=== PATIENT | male | born 1975 | race Caucasian/White ===

== ENCOUNTER 2018-03-27 09:49 | Outpatient (REF) | payer OTHER, SELFPAY ==
[2018-03-27 21:39] LABS: Cholesterol 169 mg/dL (50-200); HDL Cholesterol 45 mg/dL (40-60); LDL CHOLESTEROL 66 mg/dL (<100); Triglyceride 177 mg/dL (30-150)
[2018-03-29 09:34] LABS: Hepatitis C Ab w Rflx HCV PCR Negative (NEGAT)
[2018-03-29 09:56] LABS: HBs Antibody, Quant <3.1 mIU/mL; Hepatitis B Surface Ab Negative
[2018-03-29 10:01] LABS: Hepatitis B Surface Ag Negative (NEGAT)
[2018-03-29 10:58] LABS: HIV-1/2 Ag & Ab Screen Negative (NEGAT)
[2018-03-29 12:51] LABS: Syphilis Serology (RPR) Negative (Negative)
[2018-03-29 15:38] LABS: Chlamydia Result Negative; GC Result Negative; Specimen Description URINE
== END 2018-03-27 10:09 ==
LOC: NCHCN 09:49
PROVIDERS: PCP Nurse Practitioner Family; Visit Provider Nurse Practitioner Family
DX: Z11.3 Encounter for screening for infections with a predominantly sexual mode of transmission (principal); Z13.220 Encounter for screening for lipoid disorders; Z11.4 Encounter for screening for human immunodeficiency virus [HIV]; Z11.59 Encounter for screening for other viral diseases
CPT/HCPCS: 80061; 83721; 86706; 86803; 87340; 87389; 87491; 87591; 86592

== ENCOUNTER 2019-09-10 11:47 | Outpatient (REF) | payer SELFPAY ==
[2019-09-10 21:05] LABS: ALT 71 U/L (16-63); AST 34 U/L (15-37); Albumin 4.4 g/dL (3.4-5.0); Alkaline Phosphatase 106 U/L (46-116); Anion Gap 10.4 mmol/L (3-11); BUN 18 mg/dL (7-18); Bilirubin, Total 0.5 mg/dL (0.2-1.0); CO2 28.6 mmol/L (21.0-32.0); CREATININE 0.79 mg/dL (0.70-1.30); Chloride 104 mmol/L (98-107); Glucose 154 mg/dL (74-106); Potassium 4.2 mmol/L (3.5-5.1); Sodium 143 mmol/L (136-145); Total Protein 7.4 g/dL (6.4-8.2)
== END 2019-09-10 12:07 ==
LOC: LBN 11:47
PROVIDERS: PCP Nurse Practitioner Family; Visit Provider Internal Medicine
DX: R74.0 Nonspecific elevation of levels of transaminase and lactic acid dehydrogenase [LDH] (principal)
CPT/HCPCS: 80053

== ENCOUNTER 2020-04-19 21:12 | Outpatient (REF) | payer SELFPAY ==
[2020-04-28 17:59] LABS: SARS-CoV-2 RNA Undetected (Undetected); SARS-CoV-2 Specimen Source Nasal/Nares
== END 2020-04-19 21:32 ==
LOC: NCHCN 21:12
PROVIDERS: PCP Nurse Practitioner Family; Visit Provider Nurse Practitioner Family
DX: Z20.828 Contact with and (suspected) exposure to other viral communicable diseases (principal)
CPT/HCPCS: U0003

== ENCOUNTER 2020-07-13 17:14 | Outpatient (REF) | payer BC, SELFPAY ==
[2020-07-13 22:38] LABS: ALT 99 U/L (16-63); AST 43 U/L (15-37); Albumin 4.4 g/dL (3.4-5.0); Alkaline Phosphatase 77 U/L (46-116); BUN 22 mg/dL (7-18); Bilirubin, Total 0.3 mg/dL (0.2-1.0); CREATININE 0.93 mg/dL (0.70-1.30); Calcium 9.1 mg/dL (8.5-10.1); Chloride 103 mmol/L (98-107); Cholesterol 219 mg/dL (<200); Glucose 132 mg/dL (74-106); HDL Cholesterol 31 mg/dL (40-60); Potassium 4.2 mmol/L (3.5-5.1); Sodium 134 mmol/L (136-145); Total Protein 7.6 g/dL (6.4-8.2); Triglyceride 429 mg/dL (<150)
[2020-07-13 22:57] LABS: LDL CHOLESTEROL 72 mg/dL (<100)
[2020-07-13 23:04] LABS: Lipase 92 U/L (73-393)
== END 2020-07-13 17:34 ==
LOC: NCHCN 17:14
PROVIDERS: PCP Nurse Practitioner Family; Visit Provider Nurse Practitioner Family
DX: R10.11 Right upper quadrant pain (principal); R73.03 Prediabetes; E66.9 Obesity, unspecified
CPT/HCPCS: 80053; 80061; 83690; 83721

== ENCOUNTER 2020-10-21 08:13 | Outpatient (REF) | payer BC, SELFPAY ==
[2020-10-21 13:22] LABS: ALT 60 U/L (16-63); AST 24 U/L (15-37); Albumin 4.2 g/dL (3.4-5.0); Alkaline Phosphatase 76 U/L (46-116); Anion Gap 11.7 mmol/L (3-11); BUN 16 mg/dL (7-18); Bilirubin, Total 0.2 mg/dL (0.2-1.0); CO2 24.3 mmol/L (21.0-32.0); CREATININE 0.9 mg/dL (0.70-1.30); Calcium 8.6 mg/dL (8.5-10.1); Calculated LDL 62 mg/dL (<100); Chloride 106 mmol/L (98-107); Cholesterol 130 mg/dL (<200); Glucose 114 mg/dL (74-106); HDL Cholesterol 38 mg/dL (40-60); Potassium 4.4 mmol/L (3.5-5.1); Sodium 142 mmol/L (136-145); Total Protein 7.4 g/dL (6.4-8.2); Triglyceride 151 mg/dL (<150)
== END 2020-10-21 08:14 | disposition home or self-care (01) ==
LOC: NCHCN 08:13
PROVIDERS: PCP Nurse Practitioner Family; Visit Provider Nurse Practitioner Family
DX: R73.03 Prediabetes (principal); Z00.00 Encounter for general adult medical examination without abnormal findings; Z13.220 Encounter for screening for lipoid disorders
CPT/HCPCS: 80053; 80061; 83036

== ENCOUNTER 2024-10-29 08:45 | Outpatient (REF) | payer BC, SELFPAY ==
[2024-10-29 16:45] LABS: HCT 48.7 % (40.0-50.0); HGB 16.7 g/dL (13.5-17.5); MCH 28.4 pg (27.0-33.0); MCHC 34.3 % (32.0-36.0); MCV 83 fL (80-95); MPV 9.9 fL (8.0-11.0); Platelet Count 174 10^3/uL (130-400); RBC 5.88 10^6/uL (4.36-5.78); RDW 12.2 % (11.8-14.1); RDW-SD 36.8 fL
[2024-10-29 17:02] LABS: ALT 47 U/L (16-63); AST 27 U/L (15-37); Albumin 4.3 g/dL (3.4-5.0); Alkaline Phosphatase 89 U/L (46-116); Anion Gap 13.8 mmol/L (3-11); BUN 19 mg/dL (7-18); Bilirubin, Total 0.4 mg/dL (0.2-1.0); CO2 22.2 mmol/L (21.0-32.0); CREATININE 0.8 mg/dL (0.70-1.30); Calcium 9.2 mg/dL (8.5-10.1); Chloride 99 mmol/L (98-107); Cholesterol 256 mg/dL (<200); Estimated GFR 109.17 (mL/min/1.73m2); Glucose 350 mg/dL (74-106); HDL Cholesterol 38 mg/dL (>or=40); Potassium 4.3 mmol/L (3.5-5.1); Sodium 135 mmol/L (136-145); Total Protein 7.7 g/dL (6.4-8.2); Triglyceride 536 mg/dL (<150)
[2024-10-29 17:04] LABS: Hemoglobin A1C 11.3 % (<5.7)
[2024-10-29 17:12] LABS: LDL CHOLESTEROL 64 mg/dL (<100)
== END 2024-10-29 08:46 | disposition home or self-care (01) ==
LOC: NCHCN 08:45
PROVIDERS: PCP Nurse Practitioner Family; Visit Provider Physician Assistant
DX: Z13.1 Encounter for screening for diabetes mellitus (principal); Z13.220 Encounter for screening for lipoid disorders; Z13.6 Encounter for screening for cardiovascular disorders
CPT/HCPCS: 80053; 80061; 83721; 85027; 83036

== ENCOUNTER 2025-02-04 08:56 | Outpatient (REF) | payer BC, SELFPAY ==
[2025-02-04 15:21] LABS: Hemoglobin A1C 6.0 % (<5.7)
[2025-02-04 15:32] LABS: Calculated LDL 55 mg/dL (<100); Cholesterol 112 mg/dL (<200); HDL Cholesterol 42 mg/dL (>or=40); Triglyceride 75 mg/dL (<150)
== END 2025-02-04 08:57 | disposition home or self-care (01) ==
LOC: NCHCN 08:56
PROVIDERS: PCP Nurse Practitioner Family; Visit Provider Physician Assistant
DX: E11.9 Type 2 diabetes mellitus without complications (principal); E78.1 Pure hyperglyceridemia
CPT/HCPCS: 80061; 83036

== ENCOUNTER 2025-02-18 10:49 | Outpatient (REF) | payer BC, SELFPAY ==
[2025-02-18 15:01] LABS: COMMENT (LAB VIEW ONLY) 29.55 mg/dL; Microalb ug/mg Crea 23.0 ug/mg Cr
== END 2025-02-18 10:50 | disposition home or self-care (01) ==
LOC: NCHCN 10:49
PROVIDERS: PCP Nurse Practitioner Family; Visit Provider Physician Assistant
DX: E11.9 Type 2 diabetes mellitus without complications (principal)
CPT/HCPCS: 82043; 82570